=== PATIENT | male | born 1970 | race Caucasian/White ===

== ENCOUNTER → 2017-04-27 | Day surgery (SDC) | payer BC ==
[~2017-04-27] VITALS: Ht 185.4 cm; Wt 91.4 kg
[~2017-04-27] MED LIST: *MEPERIDINE 25 MG INJ VIAL PERIprocedural Use ONLY ONE; ACETAMINOPHEN 1000 MG/100 ML VIAL IV SCH; BUPIVACAINE/EPINEPHRINE 0.25% PF 30 ML VIAL INFIL ONE; CHLORHEXIDINE GLUCONATE 2 % 1 PACK (2 CLOTHS) TOPICAL PRN; DO NOT ADM ANY ANTICOAGULANT DRUGS PRN; FAMOTIDINE 20 MG/2 ML VIAL ONE; INSULIN HUMAN REGULAR 1,000 UNITS/10 ML VIAL SQ PRN; LACTATED RINGER'S 1000 ML IV PRN; METOPROLOL TARTRATE 25 MG TAB PO PRN; MIDAZOLAM HCL 2 MG/2 ML VIAL ONE; MORPHINE SULFATE 4 MG/ML INJ ONE; ONDANSETRON HCL 4 MG/2 ML VIAL IV PUSH ONE; OXYC1TAB63 PO; POVIDONE IODINE 5% (ANTISEPSIS KIT) 4 APPLICATIONS EACH NARE PRN; PROPOFOL 200 MG/20 ML AMP IV ONE; SODIUM CHLORID 0.9% 500 ML IV PRN; ceFAZolin 2 GM PREMIX 50 ML IV SCH; fentaNYL CITRATE 250 MCG/5 ML AMP ONE; oxyCODONE/ACETAMINOPHEN 5 MG/325 MG TAB ONE
[2017-04-27 12:17] VITALS: BP 133/93; PULSE 75; RESP 16; TEMP 98.5; O2SAT 96
[2017-04-27 17:35] VITALS: BP 145/96; PULSE 70; RESP 18; TEMP 97.6; O2SAT 95
--- NOTE | 2017-04-28 08:57 | PD.OP ---
cc: Marco Greene MD Operative Report Date of Surgery: Apr 27, 2017 Preoperative Diagnosis: (1) Recurrent left inguinal hernia Postoperative Diagnosis: (1) Recurrent left inguinal hernia Procedure: Repair of recurrent left inguinal hernia with mesh Anesthesia: Gen. Surgeon: Marco Greene Marine Architect(s): Cinthya ERWIN Operation and Findings: EBL: 10 cc Operative findings: The patient had a large recurrent direct inguinal hernia with obliteration of nearly the entire direct space. 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 After approximation of the internal oblique to the shelving edge of the external oblique, Quinn repair with lightweight polypropylene mesh was performed. Procedure in detail: The patient was taken to the operating room and placed in the supine position. Gen. Anesthesia was induced. The lower abdomen and groin was prepped and draped in usual sterile fashion. Appropriate preoperative antibiotics were administered. Marcaine with epinephrine was injected in the skin and subcutaneous tissue in the left inguinal area and an inguinal incision was made. Dissection was carried out through subcutaneous tissue with electrocautery. Evin's fascia was divided with electrocautery and the external oblique was encountered. A uzma along the direction of fibers was created with a scalpel and extended with Metzenbaum scissors taking care not to injure underlying nerves. The external oblique flaps were created. The spermatic cord and hernia sac were from underlying tissues and the pubis and isolated with a Blayne drain. Cremasteric muscle fibers were divided as necessary. At this point the spermatic cord structures were examined and a moderate sized spermatic cord lipoma was encountered. It was dissected free from surrounding structures and then excised and ligated with 3- 0 Vicryl suture. A large direct inguinal hernia was encountered. There was basically obliteration of the entire direct space. The direct hernia sac was from cord structures. The spermatic vessels and vas deferens were carefully preserved. The hernia sac was from surrounding structures and reduced back into the abdominal cavity. Due to the size of the defect I reapproximated the inguinal floor by suturing the internal oblique muscle to the shelving edge of the inguinal ligament with simple interrupted 0 Vicryl suture. A 3 x 5" piece of lightweight polypropylene mesh was then cut to size. This was secured using interrupted 0 Ethibond suture to the pubic tubercle in multiple positions and along the inguinal ligament past the entrance of the spermatic cord into the internal ring. Simple interrupted 0 Ethibond sutures were used to fasten the superior aspect of the mesh medially and superiorly along the conjoined tendon and internal oblique fibers taking care to avoid nearby nerves. The internal ring was re-created by reapproximating the mesh with interrupted suture taking care to avoid strangulation of the cord. The lateral flaps of mesh were tucked under the external oblique fascia. The external oblique fascia was somewhat attenuated. There was good coverage of the entire inguinal floor. There was appropriate hemostasis in the operative field. The external ring was re-created by closing the external oblique fascia with running 3-0 Vicryl suture. Evin's was closed with interrupted 3-0 Vicryl sutures. Skin closed with running subcuticular 4-0 Monocryl as well as Dermabond. The patient tolerated procedure well and was taken to postop in stable condition. Marco Greene MD Apr 28, 2017 08:57
== END | disposition home or self-care (01) ==
LOC: HSDC 11:35
PROVIDERS: ATTEND Surgery
PROC: 0YU60JZ Supplement Left Inguinal Region with Synthetic Substitute, Open Approach (ICD-10-PCS; principal; 2017-04-27 13:25)
DX: K40.91 Unilateral inguinal hernia, without obstruction or gangrene, recurrent (principal); D17.6 Benign lipomatous neoplasm of spermatic cord; N25.81 Secondary hyperparathyroidism of renal origin
CPT/HCPCS: 00830; 49520; C1781; J0131; J0690; J2175; J2250; J2270; J2405; J3010; J7120